=== PATIENT | male | born 1960 | race Caucasian/White ===

== ENCOUNTER → 2023-03-02 10:21 | Outpatient (CLI) | payer MEDICARE, SELFPAY ==
--- NOTE | ~2023-03-02 | MR_ITS ---
MRI of the lumbar spine Clinical History: Radiculopathy Technique: Axial T2-weighted images, and sagittal T1-weighted, T2-weighted, and T2 fat-sat images wer e acquired. Findings: No fracture identified. There is minimal grade 1 retrolisthesis of L2 over L3. No suspiciou s bone marrow signal abnormality seen. At L1-L2, there is mild disc bulge and moderate facet arthropathy. There is mild central canal stenos is. Bilateral neural foramina are minimally narrowed. At L2-L3, there is disc bulge and severe facet arthropathy, with mild central canal stenosis. There i s moderate right neural foraminal narrowing. Left neural foramen preserved. At L3-L4, there is mild disc bulge and severe facet arthropathy. No central canal stenosis. There is moderate to severe left neural foraminal narrowing, and severe right neural foraminal narrowing. At L4-L5, there is disc bulge and severe facet arthropathy. No central canal stenosis. There is sever e bilateral neural foraminal narrowing, left worse than right. At L5-S1, there is minimal disc bulge with severe right facet arthropathy. No central canal stenosis. Bilateral neural foramina are preserved. Paravertebral soft tissues are unremarkable. Impression: Moderate degenerative spondylosis, as above. Minimal grade 1 retrolisthesis of L2 over L3. Reviewed, dictated and finalized at [facility]. Impression: Moderate degenerative spondylosis, as above. Minimal grade 1 retrolisthesis of L2 over L3.
== END ==
PROVIDERS: PCP Family Medicine; Visit Provider Physician Assistant
DX: M54.16 Radiculopathy, lumbar region (principal); M43.06 Spondylolysis, lumbar region
CPT/HCPCS: 72148